=== PATIENT | male | born 1990 | race Caucasian/White ===

== ENCOUNTER 2021-11-01 02:07 | Emergency (ER) | payer MEDICAID ==
[~2021-11-01] VITALS: Ht 185.4 cm; Wt 113.4 kg
[2021-11-01] MEDS ORDERED: fentaNYL Drip 2500mCg/250mlNS 250 ML IV ONE (02:25)
[2021-11-01] MEDS ORDERED: fentaNYL CITRATE 5 ML ONE (02:25)
[2021-11-01] MEDS ORDERED: PROPOFOL 100 ML IV ONE (02:25)
[2021-11-01] MEDS ORDERED: fentaNYL Drip 2500mCg/250mlNS 250 ML IV SCH ×2 (02:30)
[2021-11-01] MEDS ORDERED: ETOMIDATE (2MG/ML) 20ML VIAL IV ONE (02:30)
[2021-11-01] MEDS ORDERED: fentaNYL CITRATE 100 MCG/2 ML VL IV ONE (02:30)
[2021-11-01] MEDS ORDERED: SUCCINYLCHOLINE CHLORIDE 20 MG/ML 10ML VIAL IV ONE (02:30)
[2021-11-01] MEDS ORDERED: PROPOFOL 100 ML IV SCH (02:30)
[2021-11-01] MEDS ORDERED: TETANUS-DIPTH-ACEL PERTUSSIS 0.5ML SYR Tdap IM ONE (02:45)
[2021-11-01] MEDS ORDERED: SODIUM CHLORIDE 0.9% 2,000 ML IV ONE (03:00)
[2021-11-01] MEDS ORDERED: LACTATED RINGER'S 2,000 ML IV ONE (03:00)
[2021-11-01 03:10] VITALS: BP 181/98
== END 2021-11-01 03:30 | disposition short-term general hospital (02) ==
LOC: ER 02:07
DX: T23.202A Burn of second degree of left hand, unspecified site, initial encounter (principal); T23.201A Burn of second degree of right hand, unspecified site, initial encounter; T20.25XA Burn of second degree of scalp [any part], initial encounter; T20.26XA Burn of second degree of forehead and cheek, initial encounter; T21.22XA Burn of second degree of abdominal wall, initial encounter; T21.21XA Burn of second degree of chest wall, initial encounter; T31.33 Burns involving 30-39% of body surface with 30-39% third degree burns
CPT/HCPCS: 31500; 36600; 71045; 82805; 90471; 90715; 96361; 96374; 99291; J2704; J3010

== ENCOUNTER 2021-11-23 19:27 | Emergency (ER) | payer MEDICAID ==
[~2021-11-23] VITALS: Ht 182.9 cm; Wt 113.4 kg
[2021-11-23 21:25] LABS: Urine Bacteria NONE SEEN /hpf (None Seen); Urine Blood TRACE /uL (Negative); Urine Specific Gravity 1.027 (1.001-1.035); Urine WBC 6 /hpf (0 - 3)
[2021-11-23] MEDS ORDERED: VANCOMYCIN 1GM/250ML 250 ML IV ONE ×2 (21:45)
[2021-11-23] MEDS ORDERED: VANCOMYCIN 500MG/100ML D5W 100 ML IV ONE (21:45)
[2021-11-23] MEDS ORDERED: IOHEXOL 300 MG/ML 100ML BOTTLE IJ ONE (22:26)
[2021-11-23] MEDS ORDERED: PIPERACILLIN-TAZO 4.5GM 100 ML IV ONE (22:30)
[2021-11-23 22:57] LABS: Lactic Acid w/Reflex 2.1 mmol/L (0.4-2.0)
[2021-11-23 23:01] LABS: Basophils # (auto) 0.1 10 ^3/uL (0-0.2); Lymphocytes # (auto) 1.8 10 ^3/uL (0.4-5.4); Monocytes # (auto) 0.8 10 ^3/uL (0-1.3); Nucleated Red Blood Cells % 0.1 %; White Blood Cell 9.8 10^3/uL (4.4-10.8)
[2021-11-23 23:02] LABS: Basophils % (auto) 0.9 % (0.0-2.0); Eosinophils # (auto) 0.1 10 ^3/uL (0-0.8); Eosinophils % (auto) 1.4 % (0.0-7.0); Hematocrit 38.5 % (41.0-53.0); Hemoglobin 12.8 g/dL (13.5-17.5); Lymphocytes % (auto) 18.3 % (10.0-50.0); Mean Corpuscular Hemoglobin 29.9 pg (28.0-32.0); Mean Corpuscular Hgb Conc. 33.3 g/dL (32.0-36.0); Mean Corpuscular Volume 89.9 fL (80.0-100.0); Monocytes % (auto) 7.9 % (0.0-12.0); Neutrophils % (auto) 71.5 % (37.0-80.0); Red Blood Cells 4.28 10^6/uL (4.5-5.90); Red Cell Distribution Width 13.3 % (11.8-14.3)
[2021-11-23 23:03] LABS: BUN/Creatinine Ratio 15.5; Calcium 9.4 mg/dL (8.5-10.1); Potassium 3.7 mmol/L (3.5-5.1)
[2021-11-24] MEDS ORDERED: HYDROcodone-ACET 10/325MG TAB PO ONE (02:15)
[2021-11-24] MEDS ORDERED: CLIN-188 PO (02:17)
[2021-11-24] MEDS ORDERED: ONDA-155 PO (02:17)
[2021-11-24] MEDS ORDERED: IBUP600T28 PO (02:17)
[2021-11-24] MEDS ORDERED: CEFD300C2 PO (02:17)
[2021-11-24 03:30] VITALS: BP 128/64
== END 2021-11-24 03:58 | disposition home or self-care (01) ==
LOC: ER 19:27
DX: L03.314 Cellulitis of groin (principal)
CPT/HCPCS: 36415; 72193; 76870; 80048; 81001; 83605; 85025; 96365; 96366; 96367; 99285; J2543; J3370; Q9967

== ENCOUNTER 2024-08-26 17:31 | Emergency (ER) | payer MEDICAID ==
[~2024-08-26] VITALS: Ht 182.9 cm; Wt 145.8 kg
[~2024-08-26 17:31] MED LIST: CEFD300C2 PO; CLIN-188 PO; IBUP1TAB5 PO; ONDA-155 PO
[2024-08-26 19:07] LABS: Basophils # (auto) 0 10 ^3/uL (0-0.2); Basophils % (auto) 0.3 % (0.0-2.0); Eosinophils # (auto) 0.1 10 ^3/uL (0-0.8); Eosinophils % (auto) 0.7 % (0.0-7.0); Hematocrit 47.4 % (41.0-53.0); Hemoglobin 16.1 g/dL (13.5-17.5); Lymphocytes # (auto) 1.3 10 ^3/uL (0.4-5.4); Lymphocytes % (auto) 10.9 % (10.0-50.0); Mean Corpuscular Hemoglobin 29.7 pg (28.0-32.0); Mean Corpuscular Volume 87.5 fL (80.0-100.0); Monocytes % (auto) 8.1 % (0.0-12.0); Neutrophils # (auto) 9.9 10 ^3/uL (1.6-8.6); Nucleated Red Blood Cells % 0.7 %; Platelet Count (auto) 245 10^3/uL (140-450); Red Blood Cells 5.42 10^6/uL (4.5-5.90); Red Cell Distribution Width 13.8 % (11.8-14.3); White Blood Cell 12.3 10^3/uL (4.4-10.8)
[2024-08-26 19:12] LABS: Anion Gap 9 (5-15); Carbon Dioxide 25 mmol/L (20-31); Chloride 103 mmol/L (98-107); Potassium 3.6 mmol/L (3.5-5.1); Sodium 137 mmol/L (136-145)
[2024-08-26 19:13] LABS: Calcium 9.6 mg/dL (8.7-10.4)
[2024-08-26 19:18] LABS: BUN/Creatinine Ratio 9.6 (10.0-20.0); Blood Urea Nitrogen 12 mg/dL (9-23)
[2024-08-26 19:20] LABS: Glucose 108 mg/dL (74-106)
[2024-08-26 19:32] LABS: Giant Platelets Few; Large Platelets MODERATE; Platelet Estimate Adequa
[2024-08-26 19:42] VITALS: BP 130/72; PULSE 78; RESP 18; TEMP 99; O2SAT 97
[2024-08-26] MEDS: LIDOCAINE 1% HCL (LOCAL ANESTH.) INJ 20ML MDV ID ONE (19:57)
[2024-08-26] MEDS: KETOROLAC TROMETH 60MG/2ML VIAL IM ONE (19:57)
[2024-08-26] MEDS: cefTRIAXone SOD 1,000 MG VL IM ONE (19:57)
--- NOTE | 2024-08-26 20:19 | DVH ---
Procedure: US LT Lower DVT Study Date and Requested Time: 08/26/2024 06:28 PM History: DVT Comparison: None Technique: Multiple high resolution pike-scale images with and without compression obtained of the le ft lower extremity veins, including the common femoral vein, deep femoral vein, proximal mid and dist al superficial femoral vein, and popliteal vein. Additional limited images of the greater saphenous v ein also obtained. Augmentation performed as indicated. Color and spectral doppler flow images obtain ed as indicated. Findings: No visible intraluminal venous thrombus. No evidence of incompressibility or abnormal color or spectr al Doppler flow visualized in the left lower extremity veins including, the common femoral vein, deep femoral vein, proximal mid and distal superficial femoral vein, and popliteal vein. Greater saphenou s vein grossly unremarkable. Prominent left inguinal lymph node measuring up to 1.1 cm in short axis. Impression: No sonographic evidence of left lower extremity deep venous thrombosis.
[2024-08-26] MEDS ORDERED: IBUP-1455 PO (20:39)
[2024-08-26] MEDS ORDERED: ACET500T58 PO (20:39)
[2024-08-26] MEDS ORDERED: BACDST PO (20:39)
--- NOTE | 2024-08-26 20:42 | ED.PDOC ---
Musculoskeletal HPI Comments This patient is a pleasant but severely morbidly obese 34-year-old male who arrives the ED today for evaluation of left lower extremity redness and skin infection concerns for the past few days. Patient states he has has cellulitis on his right lower extremity in the past and believes that he has experienced in the same condition. Patient denies any fever nausea or vomiting. Vital signs were stable on arrival. Chief Complaint: Extremity Swelling Time Seen by MD: 18:07 Primary Care Provider: ? Reviewed Notes: Nurses Notes Allergies: Coded Allergies: NO KNOWN ALLERGIES (Unverified , 11/01/21) Home Meds Active Scripts Ondansetron HCl (Ondansetron) 4 Mg Tab, 4 MG PO Q8HPRN PRN for 10 Days, #10 TAB 0 Refills Prov:LIONEL SIMON MD 11/24/21 Ibuprofen Micronized (Ibuprofen) 600 Mg Tab, 600 MG PO Q6HPRN PRN for 10 Days, #40 TAB 0 Refills Prov:LIONEL SIOMN MD 11/24/21 Clindamycin HCl (Clindamycin Hydrochloride) 150 Mg Cap, 450 MG PO QID for 10 Days, #120 CAP 0 Refills Prov:LIONEL SIMON MD 11/24/21 Cefdinir (Cefdinir) 300 Mg Cap, 1 CAP PO BID for 10 Days, #20 CAP 0 Refills Prov:LIONEL SIMON MD 11/24/21 Information Source: Patient Mode of Arrival: Ambulatory Location: Left Extremity Location: Leg Timing: Days Prehospital treatment: None Severity: Moderate Able to Move Extremity: Yes Bear Weight: Limited Pain: Moderate Hand Dominance: Right Mechanism: Spontaneous Circumstances: Spontaneous Onset of Symptoms: Spontaneous Symptoms: Swelling, Pain DVT Risk Factors: NONE Past Medical History PAST MEDICAL HISTORY: Denies Surgical History: Denies all surgeries Family History Family History: Reviewed,noncontributory to illness, Unknown Social History Smoker: Non-Smoker Alcohol: Denies ETOH Use Drugs: Denies Drug Use Lives In: Home Constitutional: denies: chills, diaphoresis, fatigue, fever, malaise, sweats, weakness, others EENTM: denies: blurred vision, double vision, ear bleeding, ear discharge, ear drainage, ear pain, ear ringing, eye pain, eye redness, hearing loss, mouth pain, mouth swelling, nasal discharge, nose bleeding, nose congestion, nose pain, photophobia, tearing, throat pain, throat swelling, voice changes, others Respiratory: denies: cough, hemoptysis, orthopnea, SOB at rest, shortness of breath, SOB with excertion, stridor, wheezing, others Cardiovascular: denies: chest pain, dizzy spells, diaphoresis, Dyspnea on exertion, edema, irregular heart beat, left arm pain, lightheadedness, palpita tions, PND, syncope, others Gastrointestinal: denies: abdomen distended, abdominal pain, blood streaked christian wels, constipated, diarrhea, dysphagia, difficulty swallowing, hematemesis, melena, nausea, poor appetite, poor fluid intake, rectal bleeding, rectal pain, vomiting, others Genitourinary: denies: burning, dysuria, flank pain, frequency, hematuria, incontinence, penile discharge, penile sore, pain, testicle pain, testicle swelling, urgency, others Neurological: denies: dizziness, fainting, headache, left sided numbness, left sided weakness, numbness, paresthesia, pre-existing deficit, right sided numbness, right sided weakness, seizure, speech problems, tingling, tremors, weakness, others Musculoskeletal: reports: others (Left lower extremity swelling and redness); denies: back pain, gout, joint pain, joint swelling, muscle pain, muscle stiffness, neck pain Integumetry: denies: bruises, change in color, change in hair/nails, dryness, laceration, lesions, lumps, rash, wounds, others Allergic/Immunocompromised: denies: Difficulty Healing, Frequent Infections, Hives, Itching, others Hematologic/Lymphatic: denies: anemia, blood clots, easy bleeding, easy bruising, swollen glands, others Endocrine: denies: excessive hunger, excessive sweating, excessive thirst, excessive urination, flushing, intolerance to cold, intolerance to heat, unexplained weight gain, unexplained weight loss, others Psychiatric: denies: anxiety, bipolar disorder, depression, hopeless, panic disorder, schizophrenia, sleepless, suicidal, others Physical Exam General Appearance: Moderate Distress (Moderate distress due to left lower extremity swelling and pain.), Obese HEENT: Normal ENT Inspection, Pharynx Normal, TMs Normal Neck: Full Range of Motion, Non-Tender, Normal, Normal Inspection Respiratory: Chest Non-Tender, Lungs Clear, No Accessory Muscle Use, No Respiratory Distress, Normal Breath Sounds Cardiovascular: No Edema, No JVD, No Murmur, No Gallop, Normal Peripheral Pulses, Regular Rate/Rhythm Breast Exam: Deferred Gastrointestinal: No Organomegaly, Non Tender, No Pulsatile Mass, Normal Bowel Sounds, Soft Genitalia: Deferred Pelvic: Deferred Rectal: Deferred Extremities: Other (Moderate edema with erythema noted on the left lower extremity distal to the knee towards the ankle. Skin is taut. No weeping noted. No lymphangitis.) Neurologic: Alert, No Motor Deficits, Normal Affect, Normal Mood, No Sensory Deficits Cerebellar Function: Normal Reflexes: Normal Skin: Dry, Normal Color, Warm Lymphatic: No Adenopathy Was a procedure done? Was a procedure done?: No Differential Diagnosis EXT Differential Diagnosis: Deep Vein Thrombosis, Other (Cellulitis, peripheral vascular disease) X-Ray, Labs, Meds, VS Vital Signs Date Time Temp Pulse Resp B/P (MAP) Pulse Ox O2 Delivery O2 Flow Rate FiO2 08/26/24 19:42 78 18 97 Room Air* 0 21 08/26/24 19:42 99.0 78 16 130/72 (91) 97 99.0 08/26/24 17:46 98.5 118 20 158/105 (122) 96 162/95 (117) Lab Test 08/26/24 18:30 Range/Units White Blood Count 12.3 H 4.4-10.8 10^3/uL Red Blood Count 5.42 4.5-5.90 10^6/uL Hemoglobin 16.1 13.5-17.5 g/dL Hematocrit 47.4 41.0-53.0 % Mean Corpuscular Volume 87.5 80.0-100.0 fL Mean Corpuscular Hemoglobin 29.7 28.0-32.0 pg Mean Corpuscular Hemoglobin Concent 34.0 32.0-36.0 g/dL Red Cell Distribution Width 13.8 11.8-14.3 % Platelet Count 245 140-450 10^3/uL Mean Platelet Volume 9.4 6.9-10.8 fL Neutrophils (%) (Auto) 80.0 37.0-80.0 % Lymphocytes (%) (Auto) 10.9 10.0-50.0 % Monocytes (%) (Auto) 8.1 0.0-12.0 % Eosinophils (%) (Auto) 0.7 0.0-7.0 % Basophils (%) (Auto) 0.3 0.0-2.0 % Neutrophils # (Auto) 9.9 H 1.6-8.6 10 ^3/uL Lymphocytes # (Auto) 1.3 0.4-5.4 10 ^3/uL Monocytes # (Auto) 1.0 0-1.3 10 ^3/uL Eosinophils # (Auto) 0.1 0-0.8 10 ^3/uL Basophils # (Auto) 0 0-0.2 10 ^3/uL Nucleated Red Blood Cells 0.7 % Platelet Estimate [place] Large Platelets Moderate Giant Platelets Few Sodium Level 137 136-145 mmol/L Potassium Level 3.6 3.5-5.1 mmol/L Chloride Level 103 98-107 mmol/L Carbon Dioxide Level 25 20-31 mmol/L Anion Gap 9 5-15 Blood Urea Nitrogen 12 9-23 mg/dL Creatinine 1.25 0.700-1.30 mg/dL Glomerular Filtration Rate Calc 78 >90 mL/min BUN/Creatinine Ratio 9.6 L 10.0-20.0 Serum Glucose 108 H 74-106 mg/dL Lactic Acid Level 1.4 0.4-2.0 mmol/L Calcium Level 9.6 8.7-10.4 mg/dL Current Medications Medications (Trade) Dose Ordered Sig/Miguel Route Start Time Stop Time Status Last Admin Ketorolac Tromethamine (Toradol Injection) 30 mg ONCE ONCE IM 08/26/24 18:30 08/26/24 18:31 DC 08/26/24 19:57 Ceftriaxone Sodium (Rocephin) 1,000 mg ONCE ONCE IM 08/26/24 18:30 08/26/24 18:31 DC 08/26/24 19:57 X-Ray, Labs, Meds, VS Comment All studies performed the ED were evaluated by me personally. Laboratories were unremarkable for any definitive systemic concerns. Doppler ultrasound was unremarkable for any DVT formation. Patient will be sent home with antibiotics to address cellulitis and lower extremity. Advised patient that this condition should be improving in the next few days. If significant improvement is not noted, return to ED for continued evaluation of probable admission. Time of 1ST Reevaluation: 20:36 Reevaluation 1ST: Improved Consultation: PCP Patient Education/Counseling: Diagnosis, Treatment Family Education/Counseling: Diagnosis, Treatment Departure 1 Departure Time of Disposition: 20:37 Impression: Primary Impression: Cellulitis Disposition: HOME / SELF CARE / HOMELESS Condition: Stable Additional Instructions: Advised patient utilize antibiotics as directed until completion as well as additional medication as needed for pain. If symptoms have not improved dramatically in the next three days, patient should return to ED for re- evaluation and possible admission. e-Prescriptions Acetaminophen (Acetaminophen) 500 Mg Tab 500 MG PO Q4HP PRN, #30 TAB Prov: EDGARD ENGLISH PAC 08/26/24 Ibuprofen Micronized (Ibuprofen) 800 Mg Tab 800 MG PO Q8HP PRN, #30 TAB Prov: EDGARD ENGLISH [facility] 08/26/24 Sulfamethoxazole W/Trimethopri (Bactrim Ds Tablet) 1 Tab Tb 1 TAB PO BID for 10 Days, #20 TAB Prov: EDGARD ENGLISH [facility] 08/26/24 Discharged With: Self, Friend Critical Care Note Critical Care Time?: No Stability Stability form required: No Heart Score Heart Score: Heart Score Response (Comments) Value History N/A 0 EKG N/A 0 Age N/A 0 Risk Factors N/A 0 Troponin N/A 0 Total 0 EDGARD ENGLISH Aug 26, 2024 20:42
== END 2024-08-26 22:07 | disposition home or self-care (01) ==
LOC: ER 17:31
DX: L03.116 Cellulitis of left lower limb (principal); Z79.1 Long term (current) use of non-steroidal anti-inflammatories (NSAID); Z79.2 Long term (current) use of antibiotics; Z79.899 Other long term (current) drug therapy
CPT/HCPCS: 36415; 80048; 83605; 85025; 93971; 96372; 99285; J0696; J1885; J2003

== ENCOUNTER 2024-09-02 02:39 | Inpatient (IN) | payer MEDICAID ==
[~2024-09-02] VITALS: Ht 182.9 cm; Wt 150.0 kg
[~2024-09-02 02:39] MED LIST changes: +ACET500T58 PO; +BACDST PO; +IBUP-1455 PO
[2024-09-02] MEDS: SODIUM CHLORIDE 0.9% 1,000 ML IV ONE (03:00)
--- NOTE | 2024-09-02 03:23 | ED.PDOC ---
Musculoskeletal HPI Comments 34-year-old male came to ER due to left lower extremity swelling. Patient has been having left lower extremity swelling for the past week. Was seen here 5 days ago, was diagnosed with cellulitis, sent home on Bactrim. Patient states swelling has persisted and worsened despite the medications Chief Complaint: Lower Extremity Time Seen by MD: 03: Primary Care Provider: ? Reviewed Notes: Nurses Notes Allergies: Coded Allergies: NO KNOWN ALLERGIES (Unverified , 11/01/21) Home Meds Active Scripts Acetaminophen (Acetaminophen) 500 Mg Tab, 500 MG PO Q4HP PRN, #30 TAB Prov:EDGARD ENGLISH PAC 08/26/24 Ibuprofen Micronized (Ibuprofen) 800 Mg Tab, 800 MG PO Q8HP PRN, #30 TAB Prov:EDGARD ENGLISH PAC 08/26/24 Sulfamethoxazole W/Trimethopri (Bactrim Ds Tablet) 1 Tab Tb, 1 TAB PO BID for 10 Days, #20 TAB Prov:EDGARD ENGLISH PAC 08/26/24 Ondansetron HCl (Ondansetron) 4 Mg Tab, 4 MG PO Q8HPRN PRN for 10 Days, #10 TAB 0 Refills Prov:LIONEL SIMON MD 11/24/21 Ibuprofen Micronized (Ibuprofen) 600 Mg Tab, 600 MG PO Q6HPRN PRN for 10 Days, #40 TAB 0 Refills Prov:LIONEL SIMON MD 11/24/21 Clindamycin HCl (Clindamycin Hydrochloride) 150 Mg Cap, 450 MG PO QID for 10 Days, #120 CAP 0 Refills Prov:LIONEL SIMON MD 11/24/21 Cefdinir (Cefdinir) 300 Mg Cap, 1 CAP PO BID for 10 Days, #20 CAP 0 Refills Prov:LIONEL SIMON MD 11/24/21 Information Source: Patient Mode of Arrival: Wheelchair Location: Left Extremity Location: Leg Timing: Days Prehospital treatment: None Severity: Moderate Able to Move Extremity: Yes Bear Weight: Limited Pain: Moderate Hand Dominance: Right Mechanism: Spontaneous Circumstances: Spontaneous Onset of Symptoms: Spontaneous Symptoms: Swelling, Pain DVT Risk Factors: Recent trauma Associated signs and symptoms: Leg pain (Left) Past Medical History PAST MEDICAL HISTORY: Denies Surgical History: Denies all surgeries Family History Family History: Reviewed,noncontributory to illness, Unknown Social History Smoker: Cigarettes, Less Than 1 Pack/Day Alcohol: Occasionally Drugs: Marijuana, Methamphetamine Lives In: Home Constitutional: denies: chills, diaphoresis, fatigue, fever, malaise, sweats, weakness, others EENTM: denies: blurred vision, double vision, ear bleeding, ear discharge, ear drainage, ear pain, ear ringing, eye pain, eye redness, hearing loss, mouth pain, mouth swelling, nasal discharge, nose bleeding, nose congestion, nose pain, photophobia, tearing, throat pain, throat swelling, voice changes, others Respiratory: denies: cough, hemoptysis, orthopnea, SOB at rest, shortness of breath, SOB with excertion, stridor, wheezing, others Cardiovascular: denies: chest pain, dizzy spells, diaphoresis, Dyspnea on exertion, edema, irregular heart beat, left arm pain, lightheadedness, palpitations, PND, syncope, others Gastrointestinal: denies: abdomen distended, abdominal pain, blood streaked bowels, constipated, diarrhea, dysphagia, difficulty swallowing, hematemesis, melena, nausea, poor appetite, poor fluid intake, rectal bleeding, rectal pain, vomiting, others Genitourinary: denies: burning, dysuria, flank pain, frequency, hematuria, incontinence, penile discharge, penile sore, pain, testicle pain, testicle swelling, urgency, others Neurological: denies: dizziness, fainting, headache, left sided numbness, left sided weakness, numbness, paresthesia, pre-existing deficit, right sided numbness, right sided weakness, seizure, speech problems, tingling, tremors, weakness, others Musculoskeletal: reports: others (Left lower extremity swelling); denies: back pain, gout, joint pain, joint swelling, muscle pain, muscle stiffness, neck pain Integumetry: denies: bruises, change in color, change in hair/nails, dryness, laceration, lesions, lumps, rash, wounds, others Allergic/Immunocompromised: denies: Difficulty Healing, Frequent Infections, Hives, Itching, others Hematologic/Lymphatic: denies: anemia, blood clots, easy bleeding, easy bruising, swollen glands, others Endocrine: denies: excessive hunger, excessive sweating, excessive thirst, excessive urination, flushing, intolerance to cold, intolerance to heat, unexplained weight gain, unexplained weight loss, others Psychiatric: denies: anxiety, bipolar disorder, depression, hopeless, panic disorder, schizophrenia, sleepless, suicidal, others Physical Exam General Appearance: No Apparent Distress, Normal HEENT: Normal ENT Inspection, Pharynx Normal, TMs Normal Neck: Full Range of Motion, Non-Tender, Normal, Normal Inspection Respiratory: Chest Non-Tender, Lungs Clear, No Accessory Muscle Use, No Respiratory Distress, Normal Breath Sounds Cardiovascular: No Edema, No JVD, No Murmur, No Gallop, Normal Peripheral Pulses, Regular Rate/Rhythm Breast Exam: Deferred Gastrointestinal: No Organomegaly, Non Tender, No Pulsatile Mass, Normal Bowel Sounds, Soft Genitalia: Deferred Pelvic: Deferred Rectal: Deferred Extremities: No calf tenderness, Normal capillary refill, Normal range of motion, Non-tender, No pedal edema, Swelling (Left lower extremity) Musculoskeletal : Apperance: Normal Neurologic: Alert, flight radio officer II-XII nml as Tested, No Motor Deficits, Normal Affect, Normal Mood, No Sensory Deficits Cerebellar Function: Normal Reflexes: Normal Skin: Dry, Normal Color, Warm Lymphatic: No Adenopathy Was a procedure done? Was a procedure done?: No Differential Diagnosis EXT Differential Diagnosis: Cellulitis, CHF, Deep Vein Thrombosis, Septic X-Ray, Labs, Meds, VS Vital Signs Date Time Temp Pulse Resp B/P (MAP) Pulse Ox O2 Delivery O2 Flow Rate FiO2 09/02/24 02:50 98.3 101 18 141/104 (116) 99 Lab Test 09/02/24 03:10 Range/Units White Blood Count 9.8 4.4-10.8 10^3/uL Red Blood Count 4.67 4.5-5.90 10^6/uL Hemoglobin 14.4 13.5-17.5 g/dL Hematocrit 41.1 # 41.0-53.0 % Mean Corpuscular Volume 88.0 80.0-100.0 fL Mean Corpuscular Hemoglobin 30.8 28.0-32.0 pg Mean Corpuscular Hemoglobin Concent 34.9 32.0-36.0 g/dL Red Cell Distribution Width 13.3 11.8-14.3 % Platelet Count 385 # 140-450 10^3/uL Mean Platelet Volume 7.9 6.9-10.8 fL Neutrophils (%) (Auto) 37.0-80.0 % Lymphocytes (%) (Auto) 10.0-50.0 % Monocytes (%) (Auto) 0.0-12.0 % Basophils (%) (Auto) 0.0-2.0 % Neutrophils # (Auto) 1.6-8.6 10 ^3/uL Lymphocytes # (Auto) 0.4-5.4 10 ^3/uL Monocytes # (Auto) 0-1.3 10 ^3/uL Differential Total Cells Counted 100.0 100 Neutrophils % (Manual) 70 37.0-80.0 Band Neutrophils % (Manual) 0 Lymphocytes % (Manual) 25 10.0-50.0 Monocytes % (Manual) 4 0-12 Eosinophils % (Manual) 1 0-7 Basophils % (Manual) 0 0.0-2.0 Metamyelocytes % (manual) 0 Myelocytes % (Manual) 0 Promyelocytes % (Manual) 0 Blast Cells % (Manual) 0 Reactive Lymphocytes 0 Platelet Estimate Adequate Sodium Level 137 136-145 mmol/L Potassium Level 3.8 3.5-5.1 mmol/L Chloride Level 100 98-107 mmol/L Carbon Dioxide Level 25 20-31 mmol/L Anion Gap 12 5-15 Blood Urea Nitrogen 11 9-23 mg/dL Creatinine 1.18 0.700-1.30 mg/dL Glomerular Filtration Rate Calc 84 >90 mL/min BUN/Creatinine Ratio 9.3 L 10.0-20.0 Serum Glucose 97 74-106 mg/dL Lactic Acid Level 2.4 *H 0.4-2.0 mmol/L Calcium Level 10.6 H 8.7-10.4 mg/dL Total Bilirubin 0.3 0.2-1.0 mg/dL Aspartate Amino Transferase (AST) 21 13-40 U/L Alanine Aminotransferase (ALT) 37 7-40 U/L Alkaline Phosphatase 78 46-116 U/L Total Protein 7.7 5.7-8.2 g/dL Albumin 4.5 3.2-4.8 g/dL Current Medications Medications (Trade) Dose Ordered Sig/Miguel Route Start Time Stop Time Status Last Admin Sodium Chloride 1,000 ml @ 1,000 mls/hr Q1H ONCE IV 09/02/24 03:00 09/02/24 03:59 DC 09/02/24 03:00 Ondansetron HCl (Zofran) 4 mg ONCE ONCE IV 09/02/24 03:00 09/02/24 03:02 DC 09/02/24 04:04 Ketorolac Tromethamine (Toradol Injection) 15 mg ONCE ONCE IV 09/02/24 03:00 09/02/24 03:02 DC 09/02/24 04:05 Cefepime HCl 50 ml @ 12.5 mls/hr ONCE ONCE IV 09/02/24 03:00 09/02/24 06:59 09/02/24 04:04 Time of 1ST Reevaluation: 03:20 Reevaluation 1ST: Unchanged Patient Education/Counseling: Diagnosis, Treatment Family Education/Counseling: No Family Present Departure 1 Departure Time of Disposition: 04:57 (Patient presenting with left lower extremity cellulitis that failed outpatient antibiotics. We will admit patient for further workup and IV antibiotics.) Impression: Primary Impression: Cellulitis Qualified Codes: L03.116 - Cellulitis of left lower limb Additional Impression: Weakness Disposition: 09 ADMITTED INPATIENT Admit to: Med Surg Condition: Serious Critical Care Note Critical Care Time?: No Stability Stability form required: No Heart Score Heart Score: Heart Score Response (Comments) Value History N/A 0 EKG N/A 0 Age N/A 0 Risk Factors N/A 0 Troponin N/A 0 Total 0 I personally scribed for KELLY GARVEY MD ([email or web address]) on 09/02/24 at 03:23. Electronically submitted by Griffin Paulson ([email or web address]). KELLY GARVEY MD Sep 02, 2024 03:23
[2024-09-02 03:27] LABS: Hematocrit 41.1 % (41.0-53.0); Hemoglobin 14.4 g/dL (13.5-17.5); Mean Corpuscular Hemoglobin 30.8 pg (28.0-32.0); Mean Corpuscular Hgb Conc. 34.9 g/dL (32.0-36.0); Platelet Count (auto) 385 10^3/uL (140-450); Red Blood Cells 4.67 10^6/uL (4.5-5.90); Red Cell Distribution Width 13.3 % (11.8-14.3); White Blood Cell 9.8 10^3/uL (4.4-10.8)
[2024-09-02 03:55] LABS: Alanine Aminotransferase 37 U/L (7-40); Albumin 4.5 g/dL (3.2-4.8); Alkaline Phosphatase 78 U/L (46-116); Aspartate Aminotransferase 21 U/L (13-40); BUN/Creatinine Ratio 9.3 (10.0-20.0); Blood Urea Nitrogen 11 mg/dL (9-23); Carbon Dioxide 25 mmol/L (20-31); Glucose 97 mg/dL (74-106)
[2024-09-02 03:56] LABS: Bilirubin, Total 0.3 mg/dL (0.2-1.0); Total Protein 7.7 g/dL (5.7-8.2)
[2024-09-02 03:57] LABS: Calcium 10.6 mg/dL (8.7-10.4); Lactic Acid w/Reflex 2.4 mmol/L (0.4-2.0)
[2024-09-02 03:58] LABS: Band Neutrophils % (manual) 0; Basophils % (manual) 0 (0.0-2.0); Blast Cells 0; Metamyelocytes % 0; Myelocytes % 0; Promyelocytes % 0; Reactive Lymphocytes 0
[2024-09-02] MEDS: ONDANSETRON HCL 4 MG/2 ML VIAL IV ONE ×2 (04:04→05:36)
[2024-09-02] MEDS: CEFEPIME 2GM/50ML NS 50 ML IV ONE (04:04)
[2024-09-02] MEDS: KETOROLAC TROMETH 30 MG/ML 1ML VIAL IV ONE (04:05)
[2024-09-02 04:10] LABS: Anion Gap 12 (5-15); Chloride 100 mmol/L (98-107); Potassium 3.8 mmol/L (3.5-5.1); Sodium 137 mmol/L (136-145)
[2024-09-02 04:39] LABS: Eosinophils % (manual) 1 (0-7); Lymphocytes % (manual) 25 (10.0-50.0); Monocytes % (manual) 4 (0-12); Platelet Estimate Adequate
[2024-09-02] MEDS: VANCOMYCIN 1GM/250ML KIT 200 ML IV ONE (05:01)
[2024-09-02] MEDS: CLINDAMYCIN 900MG IV 50 ML IV ONE (05:15)
[2024-09-02] MEDS: MORPHINE SULFATE 4 MG/ML SYR/VIAL IV ONE (05:35)
--- NOTE | 2024-09-02 05:39 | DVH ---
Clinical History: left lower extremity swelling Comparison: US LT LOWER DVT on DOS: 08/26/24 Technique: Duplex Doppler evaluation of the deep venous system of the left lower extremity from the common femor al vein to the popliteal vein including color Doppler and spectral/pulsed waveform analysis was perfo rmed. Findings: The common femoral vein demonstrates appropriate compressibility and waveform variability. There is compressibility/patency of the great saphenous vein at the proximal thigh. The femoral vein demonstrates appropriate compressibility and waveform variability. The deep femoral vein demonstrates appropriate compressibility and waveform variability. The popliteal vein demonstrates appropriate compressibility and waveform variability. There is normal compressibility at the tibioperoneal trunk. There are prominent nonspecific lymph nodes in the left groin measuring up to 0.9 cm in short axis wh ich are favored to be reactive. Impression: No left deep venous thrombosis. Prominent nonspecific lymph nodes in the left groin which are favored to be reactive. If clinical concern/symptoms persist or worsen, short-interval follow-up study is suggested.
[2024-09-02 07:20] VITALS: PULSE 94; RESP 18; O2SAT 98
[2024-09-02] MEDS ORDERED: ACETAMINOPHEN 325 MG TAB PO PRN (08:15)
[2024-09-02] MEDS ORDERED: VANCOMYCIN PER PHARMACY 0 MG IV SCH (08:15)
[2024-09-02] MEDS ORDERED: ONDANSETRON HCL 4 MG/2 ML VIAL IV PRN (08:15)
[2024-09-02] MEDS ORDERED: HYDROmorphone HCL 2 MG/ML VL/or syr IV PRN (08:15)
[2024-09-02] MEDS ORDERED: HYDROcodone-ACET 5/325MG TAB PO PRN (08:15)
[2024-09-02] MEDS ORDERED: DOCUSATE SOD 100 MG CAP PO PRN (08:15)
--- NOTE | 2024-09-02 08:15 | DVHHP2 ---
Admitting Diagnosis: Left foot pain History of Present Illness 34-year-old male came to ER due to left lower extremity swelling. Patient has been having left lower extremity swelling for the past week. Was seen here 5 days ago, was diagnosed with cellulitis, sent home on Bactrim. Patient states swelling has persisted and worsened despite the medications PAST MEDICAL HISTORY: Denies Surgical History: Denies all surgeries Family History Family History: Reviewed,noncontributory to illness, Unknown Social History Smoker: Cigarettes, Less Than 1 Pack/Day Alcohol: Occasionally Drugs: Marijuana, Methamphetamine Lives In: Home Allergies: Coded Allergies: NO KNOWN ALLERGIES (Unverified , 11/01/21) Home Meds Active Scripts Acetaminophen (Acetaminophen) 500 Mg Tab, 500 MG PO Q4HP PRN, #30 TAB Prov:EDGARD ENGLISH [facility] 08/26/24 Ibuprofen Micronized (Ibuprofen) 800 Mg Tab, 800 MG PO Q8HP PRN, #30 TAB Prov:[facility]GARD ENGLISH [facility] 08/26/24 Sulfamethoxazole W/Trimethopri (Bactrim Ds Tablet) 1 Tab Tb, 1 TAB PO BID for 10 Days, #20 TAB Prov:EDGARD ENGLISH [facility] 08/26/24 Ondansetron HCl (Ondansetron) 4 Mg Tab, 4 MG PO Q8HPRN PRN for 10 Days, #10 TAB 0 Refills Prov:LIONEL SIMON MD 11/24/21 Ibuprofen Micronized (Ibuprofen) 600 Mg Tab, 600 MG PO Q6HPRN PRN for 10 Days, #40 TAB 0 Refills Prov:LIONEL SIMON MD 11/24/21 Clindamycin HCl (Clindamycin Hydrochloride) 150 Mg Cap, 450 MG PO QID for 10 Days, #120 CAP 0 Refills Prov:LIONEL SIMON MD 11/24/21 Cefdinir (Cefdinir) 300 Mg Cap, 1 CAP PO BID for 10 Days, #20 CAP 0 Refills Prov:LIONEL SIMON MD 11/24/21 Vital Signs Vital Signs Date Time Temp Pulse Resp B/P (MAP) Pulse Ox O2 Delivery O2 Flow Rate FiO2 09/02/24 07:20 94 18 98 Room Air* 0 21 09/02/24 07:20 98.6 124/73 (90) 98.6 Physical Exam Generally 34 years old male, morbidly obese, sitting on wheelchair. Mild distress HEENT-atraumatic normocephalic Heart-regular rate and rhythm Lungs decreased breath sounds due to body habitus Abdomen soft nontender nondistended Musculoskeletal-left plantar surface open lesion, no pus or drainage. Cellulitis ascended up from the foot up to below the knee. Edema dose, erythematous. Neuro-AO x3, strength intact, sensation intact bilaterally. No focal deficits Results Labs Test 09/02/24 05:02 09/02/24 03:10 Range/Units Lactic Acid Level 0.9 0.4-2.0 mmol/L White Blood Count 9.8 4.4-10.8 10^3/uL Red Blood Count 4.67 4.5-5.90 10^6/uL Hemoglobin 14.4 13.5-17.5 g/dL Hematocrit 41.1 # 41.0-53.0 % Mean Corpuscular Volume 88.0 80.0-100.0 fL Mean Corpuscular Hemoglobin 30.8 28.0-32.0 pg Mean Corpuscular Hemoglobin Concent 34.9 32.0-36.0 g/dL Red Cell Distribution Width 13.3 11.8-14.3 % Platelet Count 385 # 140-450 10^3/uL Mean Platelet Volume 7.9 6.9-10.8 fL Neutrophils (%) (Auto) 37.0-80.0 % Lymphocytes (%) (Auto) 10.0-50.0 % Monocytes (%) (Auto) 0.0-12.0 % Basophils (%) (Auto) 0.0-2.0 % Neutrophils # (Auto) 1.6-8.6 10 ^3/uL Lymphocytes # (Auto) 0.4-5.4 10 ^3/uL Monocytes # (Auto) 0-1.3 10 ^3/uL Differential Total Cells Counted 100.0 100 Neutrophils % (Manual) 70 37.0-80.0 Band Neutrophils % (Manual) 0 Lymphocytes % (Manual) 25 10.0-50.0 Monocytes % (Manual) 4 0-12 Eosinophils % (Manual) 1 0-7 Basophils % (Manual) 0 0.0-2.0 Metamyelocytes % (manual) 0 Myelocytes % (Manual) 0 Promyelocytes % (Manual) 0 Blast Cells % (Manual) 0 Reactive Lymphocytes 0 Platelet Estimate Adequate Sodium Level 137 136-145 mmol/L Potassium Level 3.8 3.5-5.1 mmol/L Chloride Level 100 98-107 mmol/L Carbon Dioxide Level 25 20-31 mmol/L Anion Gap 12 5-15 Blood Urea Nitrogen 11 9-23 mg/dL Creatinine 1.18 0.700-1.30 mg/dL Glomerular Filtration Rate Calc 84 >90 mL/min BUN/Creatinine Ratio 9.3 L 10.0-20.0 Serum Glucose 97 74-106 mg/dL Calcium Level 10.6 H 8.7-10.4 mg/dL Total Bilirubin 0.3 0.2-1.0 mg/dL Aspartate Amino Transferase (AST) 21 13-40 U/L Alanine Aminotransferase (ALT) 37 7-40 U/L Alkaline Phosphatase 78 46-116 U/L Total Protein 7.7 5.7-8.2 g/dL Albumin 4.5 3.2-4.8 g/dL Primary Diagnosis Left plantar surface ulcer, cellulitis left [id number] Failed outpatient oral therapy Bactrim Plan States he has not sees primary doctor for a while due to not been sick. Check A1c to evaluate for diabetes Vanco and Zosyn to cover Gram-positive, Gram-negative and anaerobes Check blood cultures Check ESR, CRP CT left lower extremity to evaluate for abscess DVT study negative left foot Pain control Antiemetic Podiatry consult for wound evaluation and possible debridement Check INR Gentle hydration while NPO Monitor for pain Full code NPO except meds. Restart regular diet if no procedure plan PPI for GI prophylaxis SCD on right leg. Resume chemical prophylaxis of Lovenox upon completion of procedure or if no procedure plan. Plan discussed with: Patient Date of Service: Sep 02, 2024 Billing Provider: SAJI LLOYD MD Common Visit Codes: [id number] INP/OBS CARE (HIGH) SAJI LLOYD MD Sep 02, 2024 08:15
[2024-09-02] MEDS: D5W/LACTATED RINGERS 1,000 ML IV ONE (08:47)
[2024-09-02] MEDS: PIPERACILLIN-TAZOB 3.375GM 100 ML IV ONE (08:49)
[2024-09-02 09:00] VITALS: BP 116/71; PULSE 98; RESP 18; TEMP 98.6; O2SAT 100
--- NOTE | 2024-09-02 09:27 | DVH ---
Procedure: CT LEFT LOWER EXTREMITY W/O CON 09/02/2024 08:21 AM Indication: left foot open lesion, cellulitis up to below knee Comparison Study: None. Technique: Axial images left were obtained and reformatted in coronal and sagittal planes. All CT scans at this medical facility are performed using dose modulation techniques as appropriate t o a performed exam including the following: Automated exposure control was utilized; adjustment of th e MA and/or KV according to patient size; and use of iterative reconstruction technique. CT Dose: CTDI volume is 7.82 mGy. Dose-length product is 528.84 mGy*cm FINDINGS: Bones: No acute fracture or dislocation. Joint spaces are maintained. Soft tissues: Diffuse subcutaneous edema in the leg and foot most prominent at the level of the ankle and midfoot. No drainable fluid collection noted in this limited unenhanced study. No edema or flui d along the deep intermuscular fascia noted. IMPRESSION: 1. Diffuse subcutaneous edema / cellulitis with no definite drainable fluid collection in this limite d unenhanced study. 2. No acute osseous abnormality. No cortical erosion or lytic osseous lesion. No periosteal reaction. No evidence of stress reaction.
[2024-09-02 09:45] LABS: INR 0.99 (0.9-1.15); Prothrombin Time 10.5 sec (9.3-11.8)
[2024-09-02] MEDS ORDERED: VANCOMYCIN 1.5GM/300ML 300 ML IV SCH (10:00)
[2024-09-02 10:33] LABS: Erythrocyte Sedimentation Rate 71 mm/hr (0-20)
[2024-09-02] MEDS ORDERED: SODIUM CHLOR 0.9% PF (SALINE LOCK) 10ML VIAL/SYR IV SCH (14:00)
[2024-09-02] MEDS ORDERED: PIPERACILLIN-TAZOB 3.375GM 100 ML IV SCH (14:00)
== END 2024-09-02 10:53 | disposition left against medical advice (07) | DRG 383 ==
LOC: ER 02:39 → OVERFLOW 08:08
PROVIDERS: ADMIT Internal Medicine; ATTEND Internal Medicine
DX: L03.116 Cellulitis of left lower limb (principal); L97.829 Non-pressure chronic ulcer of other part of left lower leg with unspecified severity; F17.210 Nicotine dependence, cigarettes, uncomplicated; Z53.29 Procedure and treatment not carried out because of patient's decision for other reasons; Z79.1 Long term (current) use of non-steroidal anti-inflammatories (NSAID); Z79.899 Other long term (current) drug therapy
CPT/HCPCS: 36415; 73700; 80053; 83036; 83605; 85007; 85027; 85610; 85652; 86141; 87040; 93971; G0378; J0692; J1885; J2405; J2543; J3490